=== PATIENT | male | born 1970 | race Two or more races ===

== ENCOUNTER 2020-04-17 10:41 | Outpatient (CLI) | payer OTHER | END 2020-04-17 15:00 | disposition home or self-care (01) | LOC: LAB 10:41 | PROVIDERS: ATTEND Urology | DX: R97.20 Elevated prostate specific antigen [PSA] (principal) ==

== ENCOUNTER 2020-04-21 07:04 | Outpatient (CLI) | payer OTHER | END 2020-04-21 07:16 | disposition home or self-care (01) | LOC: SONOGRAMA 07:04 | PROVIDERS: ATTEND Urology | DX: R97.20 Elevated prostate specific antigen [PSA] (principal) ==